=== PATIENT | female | born 1975 | race Caucasian/White ===

== ENCOUNTER 2022-10-04 06:22 | Day surgery (SDC) | payer BC, SELFPAY ==
[2022-10-04] VITALS (7 sets, daily range): BP systolic 88–125; BP diastolic 58–83; PULSE 53–69; RESP 16; TEMP 36.3; O2SAT 96–100; BMI 23.8
[2022-10-04 06:48] LABS: Internal QC Validated? YES +Cl - CLEAR BKGD; Pregnancy, Urine Negative Negative
[2022-10-04] MEDS: Lactated Ringers 1,000 ML 15 ML IV (06:52)
--- NOTE | 2022-10-04 07:07 | PCM.HP.STD ---
[facility] - General General Date of Admission: 10/04/22 Date of Service: 10/04/22 Chief Complaint: Screening colonoscopy HPI Narrative DERICK LUU, is a 46 F who presents today for screening colonoscopy. She does not have any abdominal pain. She has 3 second-degree relatives all with colon cancer. She is not having any bleeding per rectum. Her weight has been stable. She denies any nausea, vomiting or diarrhea. She denies any blood per rectum. Overall she is very good health. [facility] Medical History (Updated 10/02/22 @ 08:50 by So Orourke) Alcohol use Back pain Chronic cough Family history of colon cancer History of echocardiogram Wears glasses Home Medications ascorbic acid (vitamin C) 1,000 mg tablet 1 g PO DAILY 05/30/22 [History Last Taken Unknown] biotin 5,000 mcg sublingual tablet 5,000 mcg sublingual DAILY 05/30/22 [History Last Taken Unknown] cetirizine 5 mg tablet 5 mg PO DAILY PRN ALLERGIES 05/30/22 [History Last Taken Unknown] elderberry fruit 460 mg-elderberry flower 115 mg capsule 1 cap PO DAILY 05/30/22 [History Last Taken Unknown] turmeric 400 mg capsule 400 mg PO DAILY 05/30/22 [History Last Taken Unknown] cholecalciferol (vitamin D3) 25 mcg (1,000 unit) tablet (Vitamin D3) 25 mcg PO DAILY 10/02/22 [History Last Taken Unknown] melatonin 10 mg capsule 10 mg PO QHS 10/02/22 [History Last Taken Unknown] Allergy/AdvReac Type Severity Reaction Status Date / Time No Known Allergies Allergy Verified 10/04/22 06:43 Family History (Updated 05/30/22 @ 10:42 by Avril Dueñas) Uncle Colon cancer Surgical History (Updated 10/02/22 @ 08:50 by So Orourke) History of back surgery History of delivery History of discectomy Hx of abdominoplasty Social History (Updated 05/30/22 @ 10:42 by Avril Dueñas) household members: spouse Smoking Status: Never smoker ROS Review of Systems ROS Unobtainable: other Constitutional Constitutional: Denies fatigue, fever(s), poor appetite, weight gain or weight loss ENT HEENT: Denies mouth lesions Cardiovascular Cardiovascular: Denies abdominal bloating, abdominal edema or abdominal pain Respiratory/Chest Respiratory/Chest: Denies change in mental status, change in phlegm color, chest congestion or chest tightness Gastrointestinal Gastrointestinal: Denies belching, bloating, change in bowel habits, change in stool character, chewing difficulty, coffee ground emesis, constipation, cramping, diarrhea, dyspepsia, dysphagia, early satiety, excessive flatus, fecal incontinence, heartburn, hematemesis, hematochezia, hemorrhoids, loose stools, melena, nausea, odynophagia, rectal bleeding, tenesmus, vomiting or weight changes Genitourinary Genitourinary: Denies abdominal discomfort, burning urination or itching Musculoskeletal Musculoskeletal: Reports as per HPI; Denies muscle weakness or myalgias Integumentary Integumentary: Denies jaundice Neurologic Neurologic: Denies lack of coordination or weakness Psychiatric Psychiatric: Denies confusion, depression, memory loss, mood swings, paranoia or suicidal ideation Endocrine Endocrinology: Denies systems reviewed and no addt'l complaints, except as documented Hematologic/Lymphatic Hematologic/Lymphatic: Denies anemia, easy bleeding, easy bruising or lymphadenopathy Allergic/Immunologic Allergic/Immunologic: Denies systems reviewed and no addt'l complaints, except as documented Vital Signs Vital Signs Vital Signs: 10/04/22 06:50 10/04/22 06:50 Temperature 97.3 F L Temperature Source Temporal Pulse Rate 67 Respiratory Rate 16 Respiratory Pattern Normal Blood Pressure 125/83 H Blood Pressure Mean 97 Blood Pressure Source Monitor Blood Pressure Position Semi-Fowlers Blood Pressure Location Right Arm Pulse Ox 100 Oxygen Delivery Method Room Air Weight Weight: 138 lb 14.259 oz Body Mass Index (BMI) 23.8 Physical Exam Const alert, oriented x3, no apparent distress, healthy appearing and well nourished General Appearance: cooperative, comfortable, well kempt and well developed Orientation / Consciousness: awake and oriented to person HEENT Head and Scalp: normocephalic and atraumatic Face and Sinus: normal facial exam Mouth: oral and palatal mucosa normal Eyes General Eye: normal appearance of both eyes Neck full ROM Lymph Lymphatic: no lymphadenopathy noted Chest inspection of chest normal Resp normal respiratory effort and no use of accessory muscles Cardio regular rate and regular rhythm GI normal to inspection, nondistended, normoactive bowel sounds, soft to palpation, non-tender, non-distended and no masses Auscultation: normoactive bowel sounds Palpation: soft Percussion: normal to percussion Rectal Exam: visual inspection normal and normal sphincter tone no CVA tenderness Back/Spine no CVA tenderness and normal ROM Extremity normal to inspection Peripheral Pulses: Yes pulses 2+ throughout Skin no rashes or lesions noted General Skin Exam: no breakdown, elasticity normal and turgor normal Neuro oriented x3 Motor Exam: strength 5/5 throughout Psych mental status grossly normal Appearance: grossly normal Attitude: calm Activity / Motor Behavior: appropriate eye contact Speech: normal speech Thought Process: normal thought process Thought Content: normal thought content Attention / Concentration: attention grossly intact Memory / Cognition: memory grossly intact Insight: insight good Judgement: judgement good Results Lab / Micro Data Labs: Laboratory Results - last 24 hr 10/04/22 06:35: Urine Test Negative Assessment & Plan Assessment/Plan (1) Encounter for screening for malignant neoplasm of colon: PLAN: She was explained alternatives, risk, benefits including outstanding bleeding, infection, sepsis, perforation, need for emergent surgery and . She will have an ASA of 1.
--- NOTE | 2022-10-04 07:30 | COLBX_PTH ---
PATIENT: DERICK LUU LOC: EN U#:[id number] AGE/SX: 46/F ROOM: RE10/04/[address]: Dr. Jake Vázquez DO : 1975 BED: DIS: 10/04/2022 SPEC #: [id number] RECD: 10/04/22 10:27 STATUS: AHMET REFabián #: [id number] JENNIFFER: 10/04/22 07:[address]: Jake Vázquez DEPT: SURGICAL PATHOLOGY RECD BY: Stefano Locke ENTERED: 10/04/22 11:14 SP TYPE: COLON BX OTHR DR: Dr. Yen Adams DO Tissues: Cecum, NOS Procedures: Surgery Specimen Level IV HEADER OPERATION: Colonoscopy ? open access (MAC) with polypectomy PRE-OP DIAGNOSIS: Screening TISSUE SUBMITTED: Cecum polyp MICROSCOPIC DIAGNOSIS Cecal polyp, polypectomy: Fragments of hyperplastic polyp. SJ:pascale 10/05/2022 MICROSCOPIC DESCRIPTION Slides are reviewed. GROSS DESCRIPTION Received in fixative is one container labeled with the patient's name and designated cecum polyp. The specimen consists of multiple irregular fragments of light retana soft tissue that in aggregate measure 0.6 x 0.5 x 0.1 cm. The specimen is totally submitted in one cassette. / SJ:rg 10/04/2022 TC:1 CPT: 62339
--- NOTE | 2022-10-04 08:13 | OP.CCLET_ITS ---
10/04/2022 Yen Adams Re : Colonoscopy procedure for Janeth Tran Amanda Adams This procedure was performed on Tuesday, October 04, 2022. My impressions and recommendations are as follows: Impressions : - Preparation of the colon was fair. - Stool in the rectum, in the recto-sigmoid colon and in the sigmoid colon. - One 9 mm polyp in the cecum, removed with a hot snare. Resected and retrieved. Clips were placed. Recommendations : - Repeat colonoscopy in 5 years for surveillance. - Continue present medications. My findings are described in the full procedure note, which is enclosed. If I can be of further assistance, please feel free to contact me at . Sincerely, Jake Vázquez, 10/04/2022 8:13:04 AM This report has been signed electronically.
--- NOTE | 2022-10-04 08:13 | OP.COLON_ITS ---
Patient Name: Janeth Tran Procedure Date: 10/04/2022 7:41 AM Date of : 1975 Age: 46 Procedure: Colonoscopy Indications: Screening for colorectal malignant neoplasm Providers: Jake Vázquez DO Medicines: Monitored Anesthesia Care Patient Profile: This is a 46 year old female. Refer to note in patient chart for documentation of history and physical. Last Colonoscopy: none. The patient's first colonoscopy is today. Complications: No immediate complications. Procedure: Pre-Anesthesia Assessment: - Prior to the procedure, a History and Physical was performed, and patient medications and allergies were reviewed. The risks and benefits of the procedure and the sedation options and risks were discussed with the patient. All questions were answered and informed consent was obtained. Patient identification and proposed procedure were verified by the physician. Mental Status Examination: alert and oriented. Airway Examination: normal oropharyngeal airway and neck mobility. Respiratory Examination: clear to auscultation. CV Examination: normal. Prophylactic Antibiotics: The patient does not require prophylactic antibiotics. Prior Anticoagulants: The patient has taken no previous anticoagulant or antiplatelet agents. ASA Grade Assessment: II - A patient with mild systemic disease. After reviewing the risks and benefits, the patient was deemed in satisfactory condition to undergo the procedure. The anesthesia plan was to use monitored anesthesia care (MAC). Immediately prior to administration of medications, the patient was re-assessed for adequacy to receive sedatives. The heart rate, respiratory rate, oxygen saturations, blood pressure, adequacy of pulmonary ventilation, and response to care were monitored throughout the procedure. The physical status of the patient was re-assessed after the procedure. After I obtained informed consent, the scope was passed under direct vision. Throughout the procedure, the patient's blood pressure, pulse, and oxygen saturations were monitored continuously. The Colonoscope was introduced through the anus and advanced to the cecum, identified by appendiceal orifice and ileocecal valve. The colonoscopy was performed without difficulty. The patient tolerated the procedure well. The quality of the bowel preparation was fair. Scope In: 7:51:01 AM Scope Withdrawal Time 0 hours 13 minutes 8 seconds Scope Out: 8:07:23 AM Total Procedure Duration Time 0 hours 16 minutes 22 seconds Findings: The perianal and digital rectal examinations were normal. Solid stool was found in the rectum, in the recto-sigmoid colon and in the sigmoid colon, precluding visualization. A 9 mm polyp was found in the cecum. The polyp was flat. The polyp was removed with a hot snare. Resection and retrieval were complete. To prevent bleeding after the polypectomy, two hemostatic clips were successfully placed. There was no bleeding at the end of the procedure. Impression: - Preparation of the colon was fair. - Stool in the rectum, in the recto-sigmoid colon and in the sigmoid colon. - One 9 mm polyp in the cecum, removed with a hot snare. Resected and retrieved. Clips were placed. Recommendation: - Repeat colonoscopy in 5 years for surveillance. - Continue present medications. Procedure Code(s): --- Professional --- 81574, Colonoscopy, flexible; with removal of tumor(s), polyp(s), or other lesion(s) by snare technique CPT copyright 2017 [employer]. All rights reserved. The codes documented in this report are preliminary and upon conformal pad former review may be revised to meet current compliance requirements. Jake Vázquez DO 10/04/2022 8:13:04 AM This report has been signed electronically. Number of Addenda: 0 Note Initiated On: 10/04/2022 7:41 AM
== END 2022-10-04 09:00 | disposition home or self-care (01) ==
LOC: EN 06:26 → AC 06:30
PROVIDERS: Anesthesiology; PCP Internal Medicine; Referring Provider Internal Medicine; Visit Provider Internal Medicine Gastroenterology
PROC: 0DJD8ZZ Inspection of Lower Intestinal Tract, Via Natural or Artificial Opening Endoscopic (ICD-10-PCS; CPT 45378; principal; 2022-10-04 07:25)
DX: Z12.11 Encounter for screening for malignant neoplasm of colon (principal); K63.5 Polyp of colon
CPT/HCPCS: 45385; 81025; 88305; J7120; J2405

== ENCOUNTER → 2022-12-07 | Outpatient (CLI) | payer BC, SELFPAY ==
--- NOTE | 2022-12-07 13:18 | US_ITS ---
INDICATION: Postmenopausal bleeding EXAMINATION: Ultrasound US Transvaginal Non-OB TECHNIQUE: Transvaginal (for optimal evaluation of the adnexa) pelvic ultrasound was performed. Grayscale, spectral waveform, and color flow Doppler evaluation of the adnexa. COMPARISON: None. FINDINGS: UTERUS: Anteverted. The uterus measures 5.4 x 3.9 x 2.2 cm. There is no uterine mass. There is mild heterogeneity to the uterus. The endometrial stripe measures 1.7 mm. in AP diameter which is within normal limits. There are a few tiny calcifications seen within the endometrium. RIGHT OVARY: 2.0 x 1.4 x 0.9 cm. Non-enlarged, normal echogenicity. There is normal arterial inflow and venous outflow present in the right ovary. LEFT OVARY: 2.4 x 1.1 x 0.9 cm.. Non-enlarged, normal echogenicity. There is normal arterial inflow and venous outflow present in the left ovary. Vasculature periphery of uterus and of the adnexa bilaterally of concern for pelvic congestion syndrome. FREE FLUID: None. US/Transvaginal Non- IMPRESSION: Endometrial thickness is 1.7 mm. This is within normal limits in a postmenopausal patient. Increased vasculature at the periphery of uterus and ovaries which could represent pelvic congestion syndrome. Electronically Signed: Tristan Jeffers MD, TIFFANY at 21:30 EDT ,
--- NOTE | 2022-12-07 13:57 | BD_ITS ---
STUDY: DUAL ENERGY X-RAY ABSORPTIOMETRY / DXA REASON FOR EXAM: Female, 47 years old. [id number] TECHNIQUE: Bone Mineral Density (BMD) measurements of lumbar spine and bilateral hips were obtained. COMPARISON: None. FINDINGS: Lumbar Spine (L1-L4): g/cm2 (0.957) / T-score (-0.8) / Z-score (-0.1) Findings are suggestive of normal bone density with a low fracture risk. Left Femur Total: g/cm2 (0.849) / T-score (-0.8) / Z-score (-0.3) Left Femoral Neck: g/cm2 (0.736) / T-score (-1.0) / Z-score (-0.3) Right Femur Total: g/cm2 (0.857) / T-score (-0.7) / Z-score (-0.3) Right Femoral Neck: g/cm2 (0.751) / T-score (-0.9) / Z-score (-0 point) BD/Dexa Bone Density Study IMPRESSION: The patient is considered normal as outlined below according to World [employer] Organization (WHO) criteria with a low fracture risk. Reference Information: The T-score is the number of standard deviations above or below the standard which is normal for young adults at their peak bone mineral density. The World Health Organization (WHO) interprets the T-scores as follows: Above -1 Normal bone density Between -1 and -2.5 Osteopenia Equal to / or below -2.5 Osteoporosis As a practical clinical guideline, osteopenia may be graded as follows: Mild -1 through -1.5 Moderate -1.6 through -2.0 Severe -2.1 through -2.4 The Z-score is the number of standard deviations above or below age-matched controls. A Z-score of less than -1.5 would be considered abnormal. References: 1. NIH Osteoporosis and Related Bone Diseases www osteo.org 2. International Society for Clinical Densitometry www iscd.org 3. National Osteoporosis Foundation www nof.org Electronically Signed: Ashok Ochoa MD at 13:53 EDT ,
== END | disposition home or self-care (01) ==
PROVIDERS: PCP Internal Medicine; Referring Provider Internal Medicine; Visit Provider Internal Medicine
DX: Z78.0 Asymptomatic menopausal state (principal); N95.0 Postmenopausal bleeding
CPT/HCPCS: 76830; 77080